=== PATIENT | female | born 1970 | race Caucasian/White ===

== ENCOUNTER 2022-11-03 16:40 | Emergency (ER) | payer OTHER, SELFPAY ==
[2022-11-03 17:00] VITALS: BP 151/93; PULSE 90; RESP 16; TEMP 36.7; O2SAT 100
--- NOTE | 2022-11-03 17:42 | ED.SKABFB ---
HPI - Skin/Abscess/Foreign Bdy General Chief complaint: Skin/Abscess/Foreign Body Stated complaint: rash Time Seen by Provider: 11/03/22 17:35 Source: patient, RN notes reviewed and old records reviewed Mode of arrival: ambulatory Limitations: no limitations History of Present Illness HPI narrative: 51 year old female who presents to [facility] [facility] with rash which started along bikini area about 10 days ago which is spreading now to waistline and upper arms and left neck.Patient reports that she had right shoulder surgery 12 days and is not sure if it could be related to medication received in surgery or if related to other allergens. Patient reports that she took pain medications for 2 days after surgery otherwise she has been taking Tylenol and Ibuprofen for her post op discomfort. Patient reports that rash is itchy and has been taking Benadryl for her symptoms.Patient denies any difficulty swallowing or any breathing problems. MD complaint: rash Onset (ago): week(s) (10) Treatments prior to arrival: Benadryl Related Data Allergies Allergy/AdvReac Type Severity Reaction Status Date / Time morphine Allergy Gastrointestinal Verified 11/03/22 17:06 Upset Penicillins Allergy Hives Verified 11/03/22 17:06 azithromycin AdvReac Rash Verified 11/03/22 17:06 Review of Systems Review of Systems: CONSTITUTIONAL: Denies fever, chills, or sweats. CARDIOVASCULAR: Denies chest pain, palpitations, or edema. RESPIRATORY: Denies cough or dyspnea. SKIN: Reports spreading rash from bikini line around waist now on shoulders and also on left neck, is itchy MUSCULOSKELETAL: Denies joint pain or myalgia. NEUROLOGIC: Denies headache, numbness, or weakness. All systems reviewed & are unremarkable except as noted in HPI and below PMFSH Surgical History Surgical History (Updated 11/04/22 @ 08:47 by Kasia Evans NP) Hx of shoulder surgery 10/28 Social History Social History (Updated 11/04/22 @ 08:48 by Kasia Evans NP) Smoking status: Never smoker Alcohol intake: current Alcohol use details: social Substance use type: does not use Gender identity (if verbalized by the patient): Female Comments At time of signature, agree with nursing past medical, surgical, social and family history. There is no relevant family history pertinent to the presenting complaint Exam Narrative: GENERAL: Well-appearing, well-nourished, and in no acute distress. HEAD: Normocephalic, atraumatic. EYES: PERRLA, conjunctivae clear, and EOMI. ENT: Mucous membranes moist. Oropharynx without edema, erythema or lesions. NECK: Supple. No lymphadenopathy CHEST: Clear to auscultation. No respiratory distress.SAO2 100% on room air HEART: Regular rate and rhythm. SKIN: Warm, dry.? Patches of fine red raised rash to bilateral upper arms, left side of neck, waistline and bikini area that is itchy NEURO:? Alert and oriented x3. PSYCH: Normal mood and affect Course Course Emergency Course: Patient is aware of diagnosis, understands and agrees to treatment plan.? Anticipatory guidance given.? Patient agrees to follow-up as directed and is aware of reasons to seek care at the emergency department. Portions of this record may have been created with voice recognition software Level of Care: Express Care Visit Vital Signs Vital signs: Vital Signs Temperature 36.7 C 11/03/22 17:00 Pulse Rate 90 11/03/22 17:00 Respiratory Rate 16 11/03/22 17:00 Blood Pressure 151/93 H 11/03/22 17:00 Pulse Oximetry 100 11/03/22 17:00 Oxygen Delivery Room Air 11/03/22 17:00 Temperature 36.7 C 11/03/22 17:00 Pulse Rate 90 11/03/22 17:00 Respiratory Rate 16 11/03/22 17:00 Blood Pressure 151/93 H 11/03/22 17:00 Pulse Oximetry 100 11/03/22 17:00 Oxygen Delivery Room Air 11/03/22 17:00 Reviewed MDM - Skin/Abscess/Foreign Bdy MDM Narrative Medical decision making narrative: Does not appear at this time t
== END 2022-11-03 18:05 | disposition home or self-care (01) ==
PROVIDERS: Emergency Provider Registered Nurse; PCP Family Medicine
DX: L25.9 Unspecified contact dermatitis, unspecified cause (principal)
CPT/HCPCS: 99203; G0463